=== PATIENT | male | born 1990 | race Two or more races ===

== ENCOUNTER 2018-07-07 13:38 | Outpatient (CLI) | payer OTHER | END 2018-07-07 13:39 | disposition home or self-care (01) | LOC: SC 13:38 | PROVIDERS: ATTEND Internal Medicine Pulmonary Disease | DX: R06.81 Apnea, not elsewhere classified (principal); R41.89 Other symptoms and signs involving cognitive functions and awareness; G47.10 Hypersomnia, unspecified; R06.83 Snoring; G47.8 Other sleep disorders | CPT/HCPCS: 99203; 99212 ==

== ENCOUNTER 2018-07-19 19:08 | Outpatient (CLI) | payer OTHER | END 2018-07-19 19:09 | disposition home or self-care (01) | LOC: SC 19:08 | PROVIDERS: ATTEND Internal Medicine Pulmonary Disease | DX: G47.33 Obstructive sleep apnea (adult) (pediatric) (principal) | CPT/HCPCS: 95810 ==

== ENCOUNTER 2018-08-03 14:28 | Outpatient (CLI) | payer OTHER | END 2018-08-03 14:29 | disposition home or self-care (01) | LOC: SC 14:28 | PROVIDERS: ATTEND Nurse Practitioner Family | DX: G47.33 Obstructive sleep apnea (adult) (pediatric) (principal) | CPT/HCPCS: 99212; 99214 ==